=== PATIENT | female | born 1975 | race African-American/Black ===

== ENCOUNTER 2019-09-27 14:56 | Emergency (ER) | payer OTHER, SELFPAY ==
[2019-09-27] MEDS ORDERED: IBUPROFEN 200 MG TAB PO ONE (15:38)
[2019-09-27] MEDS ORDERED: IBUPROFEN 400 MG TAB ONE (15:39)
--- NOTE | 2019-09-27 15:45 | RAD REPORT ---
EXAM DESCRIPTION: RAD - Chest Single View - 09/27/2019 3:38 pm CLINICAL HISTORY: COUGH, persistent over several days COMPARISON: Portable February 2007 TECHNIQUE: AP portable chest image was obtained 09/27/2019 3:38 pm . FINDINGS: No peripheral mass or consolidation. Lung markings are accentuated by body habitus. The asiya ng parenchymal pattern is not substantially different from comparison. Heart and vasculature are norm al. No measurable pleural effusion and no pneumothorax. No acute bony abnormality seen. No acute aort ic findings suspected. IMPRESSION: No acute cardiopulmonary process. No suspicious interval change.
--- NOTE | 2019-09-27 16:17 | ER ---
Nurse's Notes [facility] Name: Layne Fermin Age: 44 yrs Sex: Female : 1975 Arrival Date: 09/27/2019 Time: 15:00 Bed 6 Private MD: Diagnosis: Cough;Myalgia Presentation: 09/26 15:23 Chief complaint: Patient states: Cough since , reported temperature of 99 oral jl7 on , employer will not allow her to return to work until she is checked out. Pt reports taking Tylenol at 1000 today for aching low back and legs, reports CONCEPCION rated 8/10;. Coronavirus screen: Patient reports a subjective fever or greater than 100.4F, or cough, or shortness of breath, or difficulty breathing. Patient denies travel on a cruise ship or to a country the [facility] currently lists as an affected area. Patient denies contact with known and/or suspected case of COVID-19. afebrile. Ebola Screen: No symptoms or risks identified at this time. Initial Sepsis Screen: Does the patient meet any 2 criteria? No. Patient's initial sepsis screen is negative. Does the patient have a suspected source of infection? No. Patient's initial sepsis screen is negative. Risk Assessment: Do you want to hurt yourself or someone else? Patient reports no desire to harm self or others. Onset of symptoms was September 24, 2019. Care prior to arrival: Medication(s) given: Tylenol, 1000 mg. 15:23 Method Of Arrival: Ambulatory 7 15:23 Acuity: KALINA 4 jl7 Triage Assessment: 15:23 General: Appears in no apparent distress. uncomfortable, Behavior is calm, cooperative, jl7 appropriate for age. Pain: Complains of pain in CONCEPCION Pain currently is 8 out of 10 on a pain scale. Neuro: Level of Consciousness is awake, alert, obeys commands, Oriented to person, place, time, situation. Cardiovascular: Patient's skin is warm and dry. Respiratory: Airway is patent Respiratory effort is even, unlabored, Respiratory pattern is regular, symmetrical. Derm: Skin is pink, warm \T\ dry. 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 - Social history:: Smoking status: Patient denies any tobacco usage or history of. Screenin:00 Abuse screen: Denies threats or abuse. Denies injuries from another. Nutritional jl7 screening: No deficits noted. Tuberculosis screening: No symptoms or risk factors identified. Fall Risk None identified. Assessment: 15:30 General: See triage assessment. jl7 Vital Signs: 15:23 BP 151 / 80; Pulse 94; Resp 17 S; Temp 98.4(O); Pulse Ox 100% on R/A; Weight 94.8 kg jl7 (R); Height 5 ft. 5 in. (165.10 cm) (R); Pain 8/10; 16:15 BP 145 / 79; Pulse 90; Resp 16 S; Pulse Ox 100% on R/A; jl7 15:23 Body Mass Index 34.78 (94.80 kg, 165.10 cm) jl7 ED Course: 15:00 Patient arrived in ED. ag5 15:01 [facility] Diet[facility]-C [facility] la1 15:01 Eddie Pratt MD is Attending Physician. la1 15:23 Liliana Good, ERIK is Primary Nurse. jl7 15:23 Arm band placed on right wrist. jl7 15:27 Triage completed. jl7 15:39 Chest Single View XRAY In Process Unspecified. EDMS 16:00 Patient has correct armband on for positive identification. Placed in gown. Bed in low jl7 position. Call light in reach. Side rails up X 1. 16:33 No provider procedures requiring assistance completed. Patient did not have IV access jl7 during this emergency room visit. Administered Medications: 15:43 Drug: Ibuprofen 600 mg Route: PO; jl7 16:33 Follow up: Response: No adverse reaction jl7 Outcome: 16:17 Discharge ordered by . la1 16:33 Discharged to home ambulatory. jl7 16:33 Condition: stable 16:33 Discharge instructions given to patient, Instructed on discharge instructions, follow up and referral plans. medication usage, Demonstrated understanding of instructions, follow-up care, medications, Prescriptions given X 1. 16:34 Patient left the ED. jl7 Signatures: Dispatcher [employer] EDMS Javi Dietz, NATURALIST-C NATURALIST-Cla1 Liliana Good RN RN jl7 Aydee Bradford 5 Corrections: (The following items were deleted from the chart) 15:29 15:23 Acuity: KALINA 5 jlOsbaldo jl7
--- NOTE | 2019-09-27 16:18 | EDPHYS ---
Physician Documentation [facility] Name: Layne Fermin Age: 44 yrs Sex: Female : 1975 Arrival Date: 09/27/2019 Time: 15:00 Bed 6 Private MD: ED Physician Eddie Pratt HPI: 09/26 15:26 This 44 yrs old Black Female presents to ER via Unassigned with complaints of Cough, la1 Body Aches. 15:26 The patient or guardian reports cough, that is intermittent, described as moderate, flu la1 symptoms, arthralgias. The patient or guardian reports cough. Onset: The symptoms/episode began/occurred 4 day(s) ago. Severity of symptoms: At their worst the symptoms were mild. Modifying factors: The symptoms are alleviated by nothing, the symptoms are aggravated by nothing. Associated signs and symptoms: Pertinent negatives: chest pain, fever, rhinorrhea. The patient has not experienced similar symptoms in the past. 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 - Social history:: Smoking status: Patient denies any tobacco usage or history of. ROS: 15:27 Constitutional: pt states temp was 99 on Eyes: Negative for injury, pain, la1 redness, and discharge, ENT: Negative for injury, pain, and discharge, Neck: Negative for injury, pain, and swelling, Cardiovascular: Negative for chest pain, palpitations, and edema. 15:27 Abdomen/GI: Negative for abdominal pain, nausea, vomiting, diarrhea, and constipation, Back: Negative for injury and pain, MS/Extremity: Negative for injury and deformity, Skin: Negative for injury, rash, and discoloration, Neuro: Negative for headache, weakness, numbness, tingling, and seizure. 15:27 Respiratory: Positive for cough. 15:27 Neuro: Positive for headache. Exam: 15:28 Constitutional: This is a well developed, well nourished patient who is awake, alert, la1 and in no acute distress. Head/Face: Normocephalic, atraumatic. Eyes: Pupils equal round and reactive to light, extra-ocular motions intact. 15:28 Chest/axilla: Normal chest wall appearance and motion. Nontender with no deformity. No lesions are appreciated. Cardiovascular: Regular rate and rhythm with a normal S1 and S2. No gallops, murmurs, or rubs. Normal PMI, no JVD. No pulse deficits. Respiratory: Lungs have equal breath sounds bilaterally, clear to auscultation Skin: Warm, dry with normal turgor. Normal color with no rashes, no lesions, and no evidence of cellulitis. MS/ Extremity: Pulses equal, no cyanosis. Neurovascular intact. Full, normal range of motion. 15:28 ENT: External ear(s): are unremarkable, TM's: are normal, Nose: is normal, Mouth: is normal, Posterior pharynx: exudate, that is mild. Vital Signs: 15:23 BP 151 / 80; Pulse 94; Resp 17 S; Temp 98.4(O); Pulse Ox 100% on R/A; Weight 94.8 kg jl7 (R); Height 5 ft. 5 in. (165.10 cm) (R); Pain 8/10; 16:15 BP 145 / 79; Pulse 90; Resp 16 S; Pulse Ox 100% on R/A; jl7 15:23 Body Mass Index 34.78 (94.80 kg, 165.10 cm) jl7 MDM: 15:16 Patient medically screened. la1 16:16 Data reviewed: vital signs, nurses notes, lab test result(s), radiologic studies, and la1 as a result, I will discharge patient. Data interpreted: Pulse oximetry: on room air is 100 %. Interpretation: normal. Counseling: I had a detailed discussion with the patient and/or guardian regarding: the historical points, exam findings, and any diagnostic results supporting the discharge/admit diagnosis, lab results, radiology results, the need for outpatient follow up, a family practitioner, to return to the emergency department if symptoms worsen or persist or if there are any questions or concerns that arise at home. 09/26 15:26 Order name: Flu la1 09/26 15:26 Order name: Strep la1 09/26 15:26 Order name: Chest Single View XRAY; Complete Time: 15:47 la1 09/26 15:53 Order name: Throat Culture EDMS Administered Medications: 15:43 Drug: Ibuprofen 600 mg Route: PO; jl7 16:33 Follow up: Response: No adverse reaction jl7 Disposition: 18:15 Co-signature as Attending Physician, Eddie Pratt MD I agree with the assessment and kdr plan of care. Disposition: 09/27/19 16:17 Discharged to Home. Impression: Cough, Myalgia. - Condition is Stable. - Discharge Instructions: Musculoskeletal Pain, Cough, Adult. - Prescriptions for Tessalon Perles 100 mg Oral Capsule - take 1 capsule by ORAL route every 8 hours As needed; 15 capsule. - Medication Reconciliation Form, Thank You Letter, Work release form form. - Follow up: Private Physician; When: 2 - 3 days; Reason: Recheck today's complaints, Continuance of care, Re-evaluation by your physician. - Problem is new. - Symptoms have improved. Signatures: Dispatcher [employer] EDMT Eddie Pratt MD MD [facility] Javi Dietz, CODING CLERK-C CODING CLERK-Cla1 Liliana Good RN RN jl7 Corrections: (The following items were deleted from the chart) 16:34 16:17 09/27/2019 16:17 Discharged to Home. Impression: Cough; Myalgia. Condition is jl7 Stable. Forms are Medication Reconciliation Form, Thank You Letter, Antibiotic Education, Prescription Opioid Use. Follow up: Private Physician; When: 2 - 3 days; Reason: Recheck today's complaints, Continuance of care, Re-evaluation by your physician. Problem is new. Symptoms have improved. la1
[2019-09-27 16:43] VITALS: TEMP 98.4; O2SAT 100
[2019-09-27 16:45] VITALS: BP 145/79
== END 2019-09-27 16:34 | disposition home or self-care (01) ==
LOC: ER 14:56
DX: R05 Cough (principal); M79.10 Myalgia, unspecified site; Z88.6 Allergy status to analgesic agent; I10 Essential (primary) hypertension
CPT/HCPCS: 71045; 87070; 87081; 87804; 99283